=== PATIENT | female | born 1960 | race Caucasian/White ===

== ENCOUNTER 2020-08-29 14:31 | Emergency (ER) | payer BC, MEDICAID, OTHER ==
[~2020-08-29] VITALS: Ht 154.9 cm; Wt 81.6 kg
[~2020-08-29 14:31] MED LIST: ADVIR INH; ALBUPOW26 IN; ALBUPOW26 INH; MONT10TA34 OR
[2020-08-29 15:11] LABS: Urine Bacteria NONE SEEN /hpf (None Seen); Urine Blood Negative /uL (Negative); Urine Specific Gravity 1.018 (1.001-1.035); Urine WBC 2 /hpf (0 - 5)
[2020-08-29 15:51] LABS: Basophils # (auto) 0.1 10 ^3/uL (0-0.2); Basophils % (auto) 0.5 % (0.0-2.0); Eosinophils # (auto) 0.1 10 ^3/uL (0-0.8)
[2020-08-29 15:53] LABS: Eosinophils % (auto) 1.3 % (0.0-7.0); Hematocrit 46.4 % (36.0-46.0); Hemoglobin 15.4 g/dL (12.2-16.2); Lymphocytes # (auto) 2.1 10 ^3/uL (0.4-5.4); Lymphocytes % (auto) 19.2 % (10.0-50.0); Mean Corpuscular Hemoglobin 26.2 pg (28.0-32.0); Mean Corpuscular Hgb Conc. 33.3 g/dL (32.0-36.0); Mean Corpuscular Volume 78.8 fL (80.0-100.0); Monocytes # (auto) 0.6 10 ^3/uL (0-1.3); Monocytes % (auto) 5.2 % (0.0-12.0); Neutrophils % (auto) 73.8 % (37.0-80.0); Nucleated Red Blood Cells % 0.1 %; Platelet Count (auto) 328 10^3/uL (140-450); Red Blood Cells 5.88 10^6/uL (4.0-5.20); Red Cell Distribution Width 15.1 % (11.8-14.3); White Blood Cell 10.8 10^3/uL (4.4-10.8)
[2020-08-29 16:14] LABS: Alanine Aminotransferase 18 U/L (13-56); Anion Gap 7 (5-15); Aspartate Aminotransferase 13 U/L (15-37); BUN/Creatinine Ratio 14.3; Blood Urea Nitrogen 10 mg/dL (7-18); Calcium 8.7 mg/dL (8.5-10.1); Carbon Dioxide 24 mmol/L (21-32); Chloride 109 mmol/L (98-107); GFR African American 109 mL/min; GFR Non-African American 90 mL/min; Glucose 94 mg/dL (74-106); Potassium 3.9 mmol/L (3.5-5.1); Sodium 140 mmol/L (136-145)
[2020-08-29 16:16] LABS: Partial Thromboplastin Time 32.6 sec (23.0-31.2)
[2020-08-29 16:19] LABS: Alkaline Phosphatase 97 U/L (45-117); Total Protein 7.3 g/dL (6.4-8.2)
[2020-08-29 16:51] VITALS: BP 175/88
== END 2020-08-29 16:58 | disposition home or self-care (01) ==
LOC: ER 14:31
DX: K80.80 Other cholelithiasis without obstruction (principal); E86.0 Dehydration; J44.9 Chronic obstructive pulmonary disease, unspecified; Z87.891 Personal history of nicotine dependence; Z79.899 Other long term (current) drug therapy; Z88.5 Allergy status to narcotic agent
CPT/HCPCS: 36415; 71045; 74176; 80053; 81001; 84484; 85025; 85610; 85730; 93005

== ENCOUNTER 2025-04-13 05:03 | Inpatient (IN) | payer OTHER, MEDICAID ==
[2025-04-13] VITALS (13 sets, daily range): BP systolic 125; BP diastolic 74; PULSE 75–112; RESP 18–22; TEMP 98.1; O2SAT 91–98
[~2025-04-13] VITALS: Ht 157.5 cm; Wt 67.8 kg
[~2025-04-13 05:03] MED LIST changes: +MONT-8 OR; -MONT10TA34 OR
--- NOTE | 2025-04-13 05:26 | ED.PDOC ---
HPI Comments 64-year-old female with a history of TBI transferred from [facility] ER for elevated troponins. Patient presented there complaining of shortness of breath, workup showed elevated and increasing serial troponins. The patient denied chest pain at [facility], and continues to be asymptomatic here. No other symptoms. Chief Complaint: elevated troponin Time Seen by MD: 05:11 Primary Care Provider: SINDY Allergies: Coded Allergies: Morphine (Verified Allergy, Unknown, NARCOTICS, 04/13/25) Uncoded Allergies: NARCOTICS (Allergy, Unknown, 06/30/10) Home Meds Reported Medications Montelukast Sodium (MONTELUKAST SODIUM) 10 Mg Tab, 10 MG OR DAILY 09/23/13 [Advir] No Conflict Check, 2 PUFF INH PRN 11/05/11 Albuterol (Albuterol) Pow, 2.5 MG INH BID 11/05/11 Albuterol (Albuterol) Pow, 2.5 MG IN PRN 11/05/11 Past Medical History PAST MEDICAL HISTORY: Anxiety, Asthma, COPD Past Medical History (Other): TBI Surgical History: Tubal Ligation 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 Moist mucous membranes.) Neck: Full Range of Motion, Normal Inspection Respiratory: Lungs Clear, No Accessory Muscle Use, No Respiratory Distress, Normal Breath Sounds Cardiovascular: No Edema, No JVD, Regular Rate/Rhythm Breast Exam: Deferred Gastrointestinal: Non Tender, Soft Genitalia: Deferred Pelvic: Deferred Rectal: Deferred Extremities: Normal inspection, Normal range of motion, Non-tender, No pedal edema Neurologic: Alert (Oriented x4), Normal Affect, Normal Mood, Other (Moves all extremities) Cerebellar Function: NOT DONE Reflexes: NOT DONE Skin: Dry, Normal Color, Warm Lymphatic: NOT DONE EKG EKG : Comments Sinus tach, rate 107, normal intervals, left axis deviation, possible old anteroseptal infarct, nonspecific T change. Was a procedure done? Was a procedure done?: No CP Differential Dx Differential Diagnosis: Angina, [place], Pulmonary Embolus Differential Diagnosis: CHF Differential Diagnosis: Aortic dissection, Esophageal reflux/spasm, Gastritis, Pericarditis, Pneumonia X-Ray, Labs, Meds, VS Vital Signs Date Time Temp Pulse Resp B/P (MAP) Pulse Ox O2 Delivery O2 Flow Rate FiO2 04/13/25 05:17 97.8 106 26 165/90 (115) 97 97.8 04/13/25 05:08 107 X-Ray, Labs, Meds, VS Comment 64-year-old female transferred from [facility] with elevated troponins Vitals remarkable for heart rate 106 Exam unremarkable except for mild initial tachycardia Rhythm strip independently interpreted by me: Sinus tach, rate 107, no ectopy. Plan is to obtain ongoing serial troponins and Cardiology evaluation. Case discussed with KISHA Lima, who was already aware of the patient and will admit her. Time of 1ST Reevaluation: 05:24 Reevaluation 1ST: Unchanged Patient Education/Counseling: Diagnosis, Treatment Family Education/Counseling: No Family Present Departure 1 Departure Time of Disposition: 05:25 Impression: Primary Impression: Shortness of breath Additional Impression: Elevated troponin Disposition: ADMITTED INPATIENT Admit to: Tele Condition: Guarded Critical Care Note Critical Care Time?: No Stability Stability form required: No Heart Score Heart Score: Heart Score Response (Comments) Value History Slightly Suspicious 0 EKG Repolarization Disturb 1 Age >65 2 Risk Factors No known risk factors 0 Troponin >3 x's Normal limit 2 Total 5 MARTIN GUTIERREZ MD April 13, 2025 05:26
[2025-04-13] MEDS ORDERED: MORPHINE SULFATE INJ 2 MG/ml SYRG IV PRN (05:45)
[2025-04-13] MEDS ORDERED: NITROGLYCERIN 0.4 MG SL TAB SL PRN (05:45)
--- NOTE | 2025-04-13 05:50 | DVHHP2 ---
Admitting Diagnosis: elevated troponin levels, COPD exacerbation History of Present Illness HPI Mrs. Amelia Winston is a 64-year-old female with a history of TBI, COPD, Asthma transferred from [facility] ER for elevated Troponin levels. Patient presented there complaining of shortness a breath, workup showed elevated and increasing serial Troponin levels of 0.620, 3.310. Patient labs at [facility] WBC 11.3, H&H 15.3/46.7, Platelets 331, Na 135, K 4.1, BUN 17/0.74. The patient denied chest pain at [facility], patient reports mild midsternal non radiating chest pain 01/04 with shortness of breath. Patient admitted for further evaluation and treatment. Home Meds Reported Medications Montelukast Sodium (MONTELUKAST SODIUM) 10 Mg Tab, 10 MG OR DAILY 09/23/13 [Advir] No Conflict Check, 2 PUFF INH PRN 11/05/11 Albuterol (Albuterol) Pow, 2.5 MG INH BID 11/05/11 Albuterol (Albuterol) Pow, 2.5 MG IN PRN 11/05/11 Past Medical History Cardiac: No pertinent Hx Pulmonary: Asthma, COPD Central Nervous System: No pertinent Hx GI: No pertinent Hx Hemotology/Oncology: No pertinent Hx Hepatobiliary: No pertinent Hx Psychiatric: No pertinent Hx Musculoskeletal: No pertinent Hx Rheumotologic: No pertinent Hx Infectious Disease: No peritnent Hx ENT: No pertinent Hx Renal/: No pertinent Hx Endocrine: No pertinent Hx Dermatology: No pertinent Hx Others TBI, cardiac arrest with intubation Patient Family History: Chronic obstructive lung disease (situation) Family history: Cardiovascular disease Smoker: Quit Alocohol: None Drugs: None Lives with: With family Domestic Violence: Neg Review of Systems Constitutional: No symptom reported Ears, Nose, & Throat: No symptom reported Eyes: No symptom reported Pulmonary/Respiratory: Dyspnea Cardiovascular: Chest Pain Gastrointestinal: No symptom reported Genitourinary: No symptom reported Musculoskeletal: No symptom reported Skin: No symptom reported Psychiatric: No symptom reported Endocrine: No symptom reported Hemotologic/Lymphatic: No symptom reported H&P Exam Vital Signs Vital Signs Date Time Temp Pulse Resp B/P (MAP) Pulse Ox O2 Delivery O2 Flow Rate FiO2 04/13/25 05:17 97.8 106 26 165/90 (115) 97 97.8 General Appeara: Well developed, Well nourished Head Exam: Normal inspection Neck Exam: Normal inspection, Non-tender, Normal alignment Eye Exam: bilateral eye Normal inspection, bilateral eye PERRL, bilateral eye EOMI Ear Exam: bilateral ear Auricle normal Nasal Exam: Normal inspection Mouth: Normal Inspection Pulmonary/Respiratory: Normal inspection, Wheezing, Other (diminished lower bases ) Cardiovascular/Chest: Normal inspection, Regular rate, Tachycardia Peripheral Pulses: 2+ dorsalis pedis (R), 2+ dorsalis pedis (L), 2+ Radial (R), 2+ Radial (L) Abdominal Exam: Normal bowel sounds, Soft Rectal Exam: Deferred Back Exam: Normal inspection [employer]PERATOR Exam: Normal hearing, Normal speech, PERRL Neuro/Mental St: Alert, Oriented Appearance: Appropriate appearance, Appropriate insight Eye contact/ Speech: Cooperative, Good eye contact, Normal speech Thoughts/Psych: Normal thought pattern Skin Exam: Normal inspection, Normal color, Warm/dry Assessment/Plan Problem List: (1) Elevated troponin (2) COPD exacerbation (3) Shortness of breath Plan This is a 64 yo female with known history of COPD , Asthma, TBI who is a transfer from [facility] for elevated serial troponin levels. Patient 1, Elevated troponin 2. COPD exacerbation with hypoxia 3. Asthma 4. history of TBI Plan: Admit SDU Cardiology consultation , 2D echocardiogram, serial troponin levels, Anticoagulation Lovenox SC, statin, ASA, Lipid panel, Pulmonology consultation, ABG, Bronchodilators, supplemental oxygen to keep 02 saturations above 92%, IV steroids Discussed all above with patient who verbalizes agreement and understanding of care plan. All questions were answered. Discussed with supervising MD. Patient's chart is reviewed and discussed with the nurse practitioner. I agree with the nurse practitioner's evaluation, documentation, assessment and care plan as outlined. I will wait for 2D echocardiogram results. Meantime start her on IV diuresis for 24 hours and reassess. Plan discussed with: Patient, Other Code Visit Code Visit Total Time (mins): 45 JACQUELYN CHAMBERS April 13, 2025 05:50 DARWIN HARPER MD April 13, 2025 11:51
[2025-04-13 06:19] LABS: INR 1.01 (0.9-1.15); Prothrombin Time 10.7 sec (9.3-11.8)
[2025-04-13 06:31] LABS: Triglycerides 74 mg/dL (< 150)
[2025-04-13 06:33] LABS: Cholesterol 181 mg/dL (< 200); HDL Cholesterol 56 mg/dL (40-59); LDL Cholesterol 115 mg/dL (< 100)
[2025-04-13] MEDS: ALBUTEROL SULF 2.5 MG/0.5ML(0.5%) NEB SOLN NEB PRN (06:58)
[2025-04-13] MEDS: IPRATROPIUM BROM 0.5 MG/2.5ML INH SOL NEB SCH (06:58)
[2025-04-13] MEDS: HEPARIN SODIUM (PORCINE) 5000 UNITS/ML 1ML VIAL IV ONE ×2 (07:00→09:37)
--- NOTE | 2025-04-13 07:04 | DVH ---
CLINICAL INFORMATION: Shortness of breath. TECHNIQUE: Single AP portable chest radiograph was obtained. COMPARISON: None FINDINGS: Lungs: Hyperaeration of the lungs and flattening of the diaphragm suggesting emphysematous changes. M ild bilateral interstitial opacities, right greater than left, of uncertain chronicity. Cardiac: Heart size is within normal limits. Pulmonary vasculature: Unremarkable. Mediastinum/georgie: Dense atherosclerotic calcification of the aortic arch. Bones: No acute osseous abnormality identified. Other: No other significant findings. IMPRESSION: 1. Bilateral interstitial opacities, right greater than left, of uncertain chronicity. Differential c onsiderations would include atypical infectious process, chronic interstitial lung disease, or inters titial pulmonary edema in the appropriate clinical setting. No dense focal consolidation visualized. 2. Emphysematous changes.
[2025-04-13 07:32] LABS: Basophils # (auto) 0 10 ^3/uL (0-0.2); Basophils % (auto) 0.2 % (0.0-2.0); Eosinophils # (auto) 0 10 ^3/uL (0-0.8); Eosinophils % (auto) 0.1 % (0.0-7.0); Hematocrit 48.9 % (36.0-46.0); Hemoglobin 16.4 g/dL (12.2-16.2); Lymphocytes # (auto) 0.9 10 ^3/uL (0.4-5.4); Lymphocytes % (auto) 10.2 % (10.0-50.0); Mean Corpuscular Hemoglobin 26.5 pg (28.0-32.0); Mean Corpuscular Hgb Conc. 33.6 g/dL (32.0-36.0); Monocytes # (auto) 0.1 10 ^3/uL (0-1.3); Monocytes % (auto) 0.8 % (0.0-12.0); Neutrophils # (auto) 7.5 10 ^3/uL (1.6-8.6); Neutrophils % (auto) 88.7 % (37.0-80.0); Nucleated Red Blood Cells % 0.1 %; Platelet Count (auto) 378 10^3/uL (140-450); Red Blood Cells 6.19 10^6/uL (4.0-5.20); Red Cell Distribution Width 14.7 % (11.8-14.3); White Blood Cell 8.4 10^3/uL (4.4-10.8)
[2025-04-13] MEDS: methylPREDNISolone SOD SUCC 40 MG/ML VL IV SCH (07:39)
[2025-04-13 08:34] LABS: Base Excess 0.6 mmol/L (-2.0-3.0)
[2025-04-13 08:39] LABS: Potassium 4.7 mmol/L (3.5-5.1); Sodium 142 mmol/L (136-145)
[2025-04-13 08:40] LABS: Anion Gap 15 (5-15)
[2025-04-13 08:46] LABS: BUN/Creatinine Ratio 14.3 (10.0-20.0); Blood Urea Nitrogen 12 mg/dL (9-23)
[2025-04-13 08:51] LABS: Calcium 10.5 mg/dL (8.7-10.4); Carbon Dioxide 19 mmol/L (20-31); Chloride 108 mmol/L (98-107); Glucose 165 mg/dL (74-106); Magnesium 2.6 mg/dL (1.6-2.6)
[2025-04-13] MEDS: HEPARIN DRIP/D5W 100UNITS/ML 250 ML IV SCH ×2 (09:40→17:02)
--- NOTE | 2025-04-13 09:54 | ECG ---
[facility] Test Date: 2025-04-13 Test Time: 05:08:14 Pat Name: JESSE RODAS Department: ED Room: 0282T Gender: F Business Insurance Agent: ED : [id number] Requested By: MARTIN MAHAN Order Number: [id number] Reading MD: Andriy Olsen Measurements Intervals [place] Rate: 107 P: 73 WA: 152 QRS: -43 QRSD: 93 T: 76 QT: 352 QTc: 470 Interpretive Statements Sinus tachycardia Left axis deviation Probable anteroseptal infarct, recent Lateral leads are also involved Electronically Signed On 04-19-2025 11:13:20 PDT by Andriy Olsen Please click the below link to view image of tracing.
[2025-04-13 10:16] LABS: Barbiturate Scree,Urine Neg (NEGATIVE); Opiate Scree,Urine Neg (NEGATIVE)
[2025-04-13 10:17] LABS: Amphetamine Screen, Urine Neg (NEGATIVE); Benzodiazephine Screen, Urine Neg (NEGATIVE); Cannabinoid Screen, Urine Neg (NEGATIVE); Cocaine Screen, Urine Neg (NEGATIVE); Phencyclidine Screen, Urine Neg (NEGATIVE)
--- NOTE | 2025-04-13 10:29 | CONS ---
Pharmacy Clinical Information: HEPARIN DRIP PER PROTOCOL SPOKE TO BULB WEEDERASHER MCDANIELS REGARDING STARTING HEPARIN DRIP 04/13/25 AT 0557 aPTT = 37.6 HEPARIN BOLUS 4000 UNITS IVP X1 (CLARIFIED WITH PROVIDER BY ASHER MCDANIELS) INITIAL HEPARIN DRIP RATE AT 900 UNITS/HR NEXT aPTT: 04/13 AT 1530 ASHER MCDANIELS READ BACK: BOLUS 4000 UNITS IVP X1 THEN HEPARIN DRIP AT 900 UNITS/HR MACIE Michael April 13, 2025 10:29
--- NOTE | 2025-04-13 11:23 | DVHINCON2 ---
Date Seen: April 13, 2025 Referring Physician KISHA Lima Reason for Consultation NSTEMI History of Present Illness This is a 64-year-old female patient who presents to the emergency room with chief complaint of shortness of breath for one day. The patient was initially seen at [facility] and then transferred to this facility. The patient reports onset of symptoms one day prior to emergency room arrival. The patient also mentions chest pain. She states that the chest pain began after the shortness of breath. She describes it as provoked by her shortness of breath, intermittent, pressure-like in nature, substernal and nonradiating. Initial twelve lead electrocardiogram reveals sinus tachycardia with Q waves seen in anteroseptal leads. Initial troponin level of 4505ng/L with downtrend thereafter. Significant past medical history includes COPD, asthma, and history of tobacco use. The patient had a coronary angiogram with left heart catheterization in 2009 which revealed normal coronaries at that time. The patient states that she has not had any cardiac workup since then. Past Medical History Past medical history reviewed. No other significant than mentioned above. Past Surgical History Tubal ligation Family History: Chronic obstructive lung disease (situation) Family history: Cardiovascular disease Family History Family history reviewed. Social History Patient has a 45 pack-year history, quit smoking approximately five years ago Denies any illicit drug use Denies any alcohol use Allergies: Coded Allergies: Morphine (Verified Allergy, Unknown, NARCOTICS, 04/13/25) Uncoded Allergies: NARCOTICS (Allergy, Unknown, 06/30/10) Home Meds Reported Medications Montelukast Sodium (MONTELUKAST SODIUM) 10 Mg Tab, 10 MG OR DAILY 09/23/13 [Advir] No Conflict Check, 2 PUFF INH PRN 11/05/11 Albuterol (Albuterol) Pow, 2.5 MG INH BID 11/05/11 Albuterol (Albuterol) Pow, 2.5 MG IN PRN 11/05/11 Home Meds Home medications reviewed. Current Medications Current Medications Medications (Trade) Dose Ordered Sig/Liam Route PRN Reason Start Time Stop Time Status Last Admin Nitroglycerin (Ntrostat Sublingual) 0.4 mg Q5MINP PRN SL FOR CHEST PAIN 04/13/25 05:45 Morphine Sulfate 2 mg Q30M PRN IV FOR CHEST PAIN 04/13/25 05:45 Hold Enoxaparin Sodium (Lovenox) 70 mg Q12HR SC 04/13/25 12:00 04/13/25 06:53 DC Aspirin 81 mg DAILY PO 04/14/25 10:00 Methylprednisolone Sodium Succinate (Solu Medrol) 40 mg BID IV 04/13/25 06:30 04/13/25 11:05 Ipratropium [place] (Atrovent Medneb) 0.5 mg Q4HR NEB 04/13/25 06:30 04/13/25 10:53 Albuterol (Ventolin Medneb) 2.5 mg Q6HPRN PRN NEB SHORTNESS OF BREATH 04/13/25 06:30 04/13/25 10:53 Heparin Sodium/ Dextrose 250 ml @ 9 mls/hr Q24H IV 04/13/25 07:00 04/13/25 09:40 Furosemide (Lasix Injection) 40 mg BIDD IV 04/13/25 18:00 UNV Potassium Chloride (Klor-Con Tablet) 10 meq BID PO 04/13/25 22:00 UNV Review of Systems Constitutional: No symptom reported Ears, Nose, & Throat: No symptom reported Eyes: No symptom reported Neurological: No symptoms reported Pulmonary/Respiratory: Shortness of breath Cardiovascular: Chest pain Gastrointestinal: No symptom reported Genitourinary: No symptom reported Musculoskeletal: No symptom reported Skin: No symptom reported Psychiatric: No symptom reported Endocrine: No symptom reported Hematologic/Lymphatic: No symptom reported Vital Signs Vital Signs Date Time Temp Pulse Resp B/P (MAP) Pulse Ox O2 Delivery O2 Flow Rate FiO2 04/13/25 11:14 98.1 104 18 125/74 95 4.0 36 98.1 04/13/25 11:13 Nasal Cannula* Physical Exam General Appearance: Cooperative. Well-developed. Well-nourished. No acute distress. Pulmonary/Respiratory: Diminished bilateral lower lobes Cardiovascular/Chest: Regular rate and rhythm. Peripheral Pulses: 2+ Radial (R). 2+ Radial (L). 2+ Pedal (R). 2+ Pedal (L) Abdominal Exam: Normal bowel sounds. Ankle Exam: Negative ankle edema Lower extremities: Negative lower extremity edema Neuro/Mental Status: A/OX4, coherent. Thoughts/Psych: Normal thought pattern. Appropriate mood and affect. Good judgment and insight. Appearance: No acute distress. Skin Exam: Normal inspection. Normal color. Warm and dry. Labs/Diagnostic Data Labs Test 04/13/25 09:20 04/13/25 08:16 04/13/25 07:00 04/13/25 06:58 Range/Units Troponin I High Sensitivity 4363 *H </=34 ng/L Urine Opiates Screen Neg NEGATIVE Urine Fentanyl Screen Neg NEGATIVE Urine Barbiturates Screen Neg NEGATIVE Urine Phencyclidine Screen Neg NEGATIVE Urine Amphetamines Screen Neg NEGATIVE Urine Benzodiazepines Screen Neg NEGATIVE Urine Cocaine Screen Neg NEGATIVE Urine Cannabinoids Screen Neg NEGATIVE Blood Gas Specimen Type Arterial Blood Gas Sample Site Right radial Blood Gas Patient Temperature 37.0 Arterial Blood Date Drawn [id number] Arterial Blood pH 7.406 7.350-7.450 Arterial Blood Partial Pressure CO2 41.3 32.0-45.0 mmHg Arterial Blood Partial Pressure O2 76.8 L 83.0-108.0 mmHg Arterial Blood HCO3 25.4 21.0-28.0 mmol/L Arterial Blood Oxygen Saturation 95.3 94.0-98.0 % Arterial Blood Base Excess 0.6 -2.0-3.0 mmol/L Arterial Blood Oxyhemoglobin 93.8 L 94.0-98.0 % Arterial Blood Carboxyhemoglobin 1.0 0.5-1.5 % Arterial Blood Methemoglobin 0.6 0.0-1.5 % Christian Test Yes Blood Gas Total Hemoglobin 16.30 H 12.0-16.0 g/dL Blood Gas Liter Flow 6.00 Blood Gas Modality Mask - simple FiO2 % 40.0 Thyroid Stimulating Hormone (TSH) 0.34 L 0.55-4.78 uIU/mL Test 04/13/25 05:57 Range/Units White Blood Count 8.4 4.4-10.8 10^3/uL Red Blood Count 6.19 H 4.0-5.20 10^6/uL Hemoglobin 16.4 H 12.2-16.2 g/dL Hematocrit 48.9 H 36.0-46.0 % Mean Corpuscular Volume 79.0 L 80.0-100.0 fL Mean Corpuscular Hemoglobin 26.5 L 28.0-32.0 pg Mean Corpuscular Hemoglobin Concent 33.6 32.0-36.0 g/dL Red Cell Distribution Width 14.7 H 11.8-14.3 % Platelet Count 378 140-450 10^3/uL Mean Platelet Volume 9.1 6.9-10.8 fL Neutrophils (%) (Auto) 88.7 H 37.0-80.0 % Lymphocytes (%) (Auto) 10.2 10.0-50.0 % Monocytes (%) (Auto) 0.8 0.0-12.0 % Eosinophils (%) (Auto) 0.1 0.0-7.0 % Basophils (%) (Auto) 0.2 0.0-2.0 % Neutrophils # (Auto) 7.5 1.6-8.6 10 ^3/uL Lymphocytes # (Auto) 0.9 0.4-5.4 10 ^3/uL Monocytes # (Auto) 0.1 0-1.3 10 ^3/uL Eosinophils # (Auto) 0 0-0.8 10 ^3/uL Basophils # (Auto) 0 0-0.2 10 ^3/uL Nucleated Red Blood Cells 0.1 % Prothrombin Time 10.7 9.3-11.8 sec Prothrombin Time INR 1.01 0.9-1.15 Activated Partial Thromboplast Time 37.6 H 24.5-34.5 SEC Sodium Level 142 136-145 mmol/L Potassium Level 4.7 3.5-5.1 mmol/L Chloride Level 108 H 98-107 mmol/L Carbon Dioxide Level 19 L 20-31 mmol/L Anion Gap 15 5-15 Blood Urea Nitrogen 12 9-23 mg/dL Creatinine 0.84 0.550-1.02 mg/dL Glomerular Filtration Rate Calc 77 >90 mL/min BUN/Creatinine Ratio 14.3 10.0-20.0 Serum Glucose 165 H 74-106 mg/dL Hemoglobin A1c 5.5 <5.7 % A1C Calcium Level 10.5 H 8.7-10.4 mg/dL Magnesium Level 2.6 1.6-2.6 mg/dL Triglycerides Level 74 < 150 mg/dL Cholesterol Level 181 < 200 mg/dL LDL Cholesterol 115 H < 100 mg/dL HDL Cholesterol 56 40-59 mg/dL Assessment NSTEMI rule out coronary artery disease Rule out structural heart disease Hyperlipidemia, newly diagnosed COPD Asthma History of tobacco use Plan/Recommendation We will continue with the following plan/recommendations (Dr. Olsen): * Transthoracic echocardiogram to evaluate cardiac function * Chest pain protocol * HEART score: 4 points (moderate score) * ANY score: 2 points * Single antiplatelet therapy and lipid-lowering agent * Coronary angiogram * Close Cardiac surveillance Case discussed with . Given the patient's clinical presentation, elevated troponin level, and twelve lead electrocardiogram, the patient may benefit from a coronary angiogram with left heart catheterization. The procedure was discussed with the patient in full detail including risks and benefits. Risks include but are not limited to bleeding, contrast-induced nephropathy, stroke, and even . The patient understands and is agreeable to undergo the procedure. We will schedule the patient at soonest availability on 04/14/2025. Thank you for allowing us to care for this patient. Please call with any questions or concerns. Critical care time spent: 43 minutes This medical document was created using an electronic medical record system with voice recognition software and computerized dictation system. Although this document has been carefully reviewed, there might still be some phonetic and typographical errors. Occasional wrong-word or ``sound-alike substitutions may have occurred due to the inherent limitations of voice recognition software. These areas are purely typographical due to imperfections of the software programs and do not reflect any compromise in the patient's medical care. Please read the chart carefully and recognize, using context, where these substitutions have occurred. Plan discussed with: Patient NYHA Physical activity limitations: NA Date of Service: April 13, 2025 Billing Provider: PACHECO BAER Cardiology Common Codes: 81940-[id number] INP/OBS CARE (High) Cardiology Consultation Codes: 56158-[id number] CONSULT <45MIN PACHECO BAER April 13, 2025 11:23
[2025-04-13] MEDS ORDERED: ENOXAPARIN SOD 100 MG/1 ML SYRINGE SC SCH (12:00)
[2025-04-13 15:52] LABS: INR 1.04 (0.9-1.15)
[2025-04-13 15:55] LABS: Partial Thromboplastin Time 82.8 SEC (24.5-34.5)
--- NOTE | 2025-04-13 18:19 | CONS ---
Pharmacy Clinical Information: HEPARIN PER PHARMACY SPOKE TO ASHER Edouard REGARDING heparin dose change Current dose: 900 units/hr CURRENT aPTT: 82.8 on 04/13/25 at 14:48 BOLUS: no Decrease (new dose): 700 units/hr Date and time new dose started: 17:02 ON 04/13/2025 Next aPTT: 04/13/2025 AT 23:00 ASHER Edouard READ BACK NEW DOSE: 700 UNITS/HR MACIE Michael April 13, 2025 18:19
[2025-04-13] MEDS: FUROSEMIDE 40 MG/4 ML VIAL IV SCH (18:59)
--- NOTE | 2025-04-13 18:59 | DVHINCON2 ---
Date of service: April 13, 2025 Referring Physician Laverne Lima NP Reason for Consultation Shortness of breath History of Present Illness History Source: Patient Exam Limitations: No limitations HPI Patient is a 64-year old lady with a history of COPD/asthma on oxygen at home who presented with shortness of breath. Was seen in the emergency room where she was found to have an elevated troponin consistent with NSTEMI and the patient was admitted for further cardiac workup. ABG was obtain on 6 liters via facemask, pH 7.40, pCO2 41, pO2 76 and chest x-ray demonstrated reticular opacities. Pulmonology was consulted to assist in management. Home Meds Reported Medications Montelukast Sodium (MONTELUKAST SODIUM) 10 Mg Tab, 10 MG OR DAILY 09/23/13 [Advir] No Conflict Check, 2 PUFF INH PRN 11/05/11 Albuterol (Albuterol) Pow, 2.5 MG INH BID 11/05/11 Albuterol (Albuterol) Pow, 2.5 MG IN PRN 11/05/11 Past Medical History Cardiac: No pertinent Hx Pulmonary: Asthma, COPD Central Nervous System: No pertinent Hx GI: No pertinent Hx Hemotology/Oncology: No pertinent Hx Hepatobiliary: No pertinent Hx Psychiatric: No pertinent Hx Musculoskeletal: No pertinent Hx Rheumotologic: No pertinent Hx Infectious Disease: No peritnent Hx ENT: No pertinent Hx Renal/: No pertinent Hx Endocrine: No pertinent Hx Dermatology: No pertinent Hx Others TBI, cardiac arrest with intubation Past Surgical History: No pertinent Hx Family History: No pertinent Hx Patient Family History: Chronic obstructive lung disease (situation) Family history: Cardiovascular disease Smoker: No Hx (Negative) Alocohol: None Drugs: None Lives with: With family Domestic Violence: Neg Review of Systems Constitutional: No symptom reported Ears, Nose, & Throat: No symptom reported Eyes: No symptom reported Pulmonary/Respiratory: Dyspnea Cardiovascular: No symptom reported Gastrointestinal: No symptom reported Genitourinary: No symptom reported Musculoskeletal: No symptom reported Skin: No symptom reported Psychiatric: No symptom reported Endocrine: No symptom reported Hemotologic/Lymphatic: No symptom reported H&P Exam Vital Signs Vital Signs Date Time Temp Pulse Resp B/P (MAP) Pulse Ox O2 Delivery O2 Flow Rate FiO2 04/13/25 17:00 104 22 136/78 (97) 90 04/13/25 15:00 97.9 97.9 04/13/25 14:45 Nasal Cannula* 4 36 General Appeara: Well developed, Well nourished, Normal Appearance Head Exam: Normal inspection Neck Exam: Normal inspection, Non-tender, Normal alignment Eye Exam: bilateral eye Normal inspection, bilateral eye PERRL, bilateral eye EOMI Ear Exam: bilateral ear Auricle normal, bilateral ear Canal normal, bilateral ear TM normal Nasal Exam: Normal inspection Mouth: Normal Inspection Pulmonary/Respiratory: Normal inspection, Normal breath sounds, Chest non- tender, Lungs clear Cardiovascular/Chest: Normal inspection, Regular rate, Normal Rhythm Peripheral Pulses: 4+ Radial (R), 4+ Radial (L), 4+ Brachial (R), 4+ Brachial (L) Abdominal Exam: Normal bowel sounds Labs/Xrays Labs Test 04/13/25 14:48 04/13/25 08:16 04/13/25 07:00 04/13/25 06:58 Range/Units Prothrombin Time 11.0 9.3-11.8 sec Prothrombin Time INR 1.04 0.9-1.15 Activated Partial Thromboplast Time 82.8 *H 24.5-34.5 SEC Troponin I High Sensitivity 3375 *H </=34 ng/L Urine Opiates Screen Neg NEGATIVE Urine Fentanyl Screen Neg NEGATIVE Urine Barbiturates Screen Neg NEGATIVE Urine Phencyclidine Screen Neg NEGATIVE Urine Amphetamines Screen Neg NEGATIVE Urine Benzodiazepines Screen Neg NEGATIVE Urine Cocaine Screen Neg NEGATIVE Urine Cannabinoids Screen Neg NEGATIVE Blood Gas Specimen Type Arterial Blood Gas Sample Site Right radial Blood Gas Patient Temperature 37.0 Arterial Blood Date Drawn [id number] Arterial Blood pH 7.406 7.350-7.450 Arterial Blood Partial Pressure CO2 41.3 32.0-45.0 mmHg Arterial Blood Partial Pressure O2 76.8 L 83.0-108.0 mmHg Arterial Blood HCO3 25.4 21.0-28.0 mmol/L Arterial Blood Oxygen Saturation 95.3 94.0-98.0 % Arterial Blood Base Excess 0.6 -2.0-3.0 mmol/L Arterial Blood Oxyhemoglobin 93.8 L 94.0-98.0 % Arterial Blood Carboxyhemoglobin 1.0 0.5-1.5 % Arterial Blood Methemoglobin 0.6 0.0-1.5 % Christian Test Yes Blood Gas Total Hemoglobin 16.30 H 12.0-16.0 g/dL Blood Gas Liter Flow 6.00 Blood Gas Modality Mask - simple FiO2 % 40.0 Thyroid Stimulating Hormone (TSH) 0.34 L 0.55-4.78 uIU/mL Test 04/13/25 05:57 Range/Units White Blood Count 8.4 4.4-10.8 10^3/uL Red Blood Count 6.19 H 4.0-5.20 10^6/uL Hemoglobin 16.4 H 12.2-16.2 g/dL Hematocrit 48.9 H 36.0-46.0 % Mean Corpuscular Volume 79.0 L 80.0-100.0 fL Mean Corpuscular Hemoglobin 26.5 L 28.0-32.0 pg Mean Corpuscular Hemoglobin Concent 33.6 32.0-36.0 g/dL Red Cell Distribution Width 14.7 H 11.8-14.3 % Platelet Count 378 140-450 10^3/uL Mean Platelet Volume 9.1 6.9-10.8 fL Neutrophils (%) (Auto) 88.7 H 37.0-80.0 % Lymphocytes (%) (Auto) 10.2 10.0-50.0 % Monocytes (%) (Auto) 0.8 0.0-12.0 % Eosinophils (%) (Auto) 0.1 0.0-7.0 % Basophils (%) (Auto) 0.2 0.0-2.0 % Neutrophils # (Auto) 7.5 1.6-8.6 10 ^3/uL Lymphocytes # (Auto) 0.9 0.4-5.4 10 ^3/uL Monocytes # (Auto) 0.1 0-1.3 10 ^3/uL Eosinophils # (Auto) 0 0-0.8 10 ^3/uL Basophils # (Auto) 0 0-0.2 10 ^3/uL Nucleated Red Blood Cells 0.1 % Sodium Level 142 136-145 mmol/L Potassium Level 4.7 3.5-5.1 mmol/L Chloride Level 108 H 98-107 mmol/L Carbon Dioxide Level 19 L 20-31 mmol/L Anion Gap 15 5-15 Blood Urea Nitrogen 12 9-23 mg/dL Creatinine 0.84 0.550-1.02 mg/dL Glomerular Filtration Rate Calc 77 >90 mL/min BUN/Creatinine Ratio 14.3 10.0-20.0 Serum Glucose 165 H 74-106 mg/dL Hemoglobin A1c 5.5 <5.7 % A1C Calcium Level 10.5 H 8.7-10.4 mg/dL Magnesium Level 2.6 1.6-2.6 mg/dL Triglycerides Level 74 < 150 mg/dL Cholesterol Level 181 < 200 mg/dL LDL Cholesterol 115 H < 100 mg/dL HDL Cholesterol 56 40-59 mg/dL Assessment/Plan Plan Impression Acute on chronic respiratory failure Acute COPD exacerbation Elevated troponin NSTEMI Patient seen and examined in the ER Events Increasing oxygen requirements On 6 liters facemask Started on Heparin drip for NSTEMI Labs and imaging reviewed Chest x-ray shows reticular opacities, primarily in the right lung Management Supplemental oxygen Titrate to maintain sats 90% or above Incentive spirometry Antibiotics Start Levaquin 500mg IV daily Bronchodilators Steroids for COPD management Monitor renal function Monitor electrolytes Supplement as needed F/u cardiology Obtain CTA of the chest to rule out pulmonary embolism Obtain ultrasound of the lower extremities to DVT prophylaxis Critical care time 35 minutes Plan discussed with: Patient CHARBEL SULLIVAN MD April 13, 2025 18:59
--- NOTE | 2025-04-13 19:35 | DVH ---
Bilateral lower extremity venous duplex Clinical History: SWELLING Comparison: None Findings: Duplex Doppler evaluation of the deep venous systems of both lower extremities from the common femora l veins to the popliteal veins including color Doppler and spectral/pulsed waveform analysis was perf ormed. RIGHT SIDE: The common femoral vein demonstrates appropriate compressibility and waveform variability. There is compressibility/patency of the great saphenous vein at the proximal thigh. The femoral vein demonstrates appropriate compressibility and waveform variability. The deep femoral vein demonstrates appropriate compressibility and waveform variability. The popliteal vein demonstrates appropriate compressibility and waveform variability. There is normal compressibility at the tibioperoneal trunk. LEFT SIDE: The common femoral vein demonstrates appropriate compressibility and waveform variability. There is compressibility/patency of the great saphenous vein at the proximal thigh. The femoral vein demonstrates appropriate compressibility and waveform variability. The deep femoral vein demonstrates appropriate compressibility and waveform variability. The popliteal vein demonstrates appropriate compressibility and waveform variability. There is normal compressibility at the tibioperoneal trunk. IMPRESSION: 1. No right or left femoropopliteal venous thrombosis. 2. If clinical concern/symptoms persist or worsen, short-interval follow-up study is suggested. 3. END IMPRESSION:
[2025-04-13] MEDS: IOHEXOL 350 MG/ML 100ML IJ ONE (19:57)
[2025-04-13] MEDS: ATORVASTATIN 20 MG TAB PO SCH (21:24)
[2025-04-13] MEDS: levoFLOXacin 500MG 100 ML IV SCH (21:24)
[2025-04-13] MEDS: POTASSIUM CHL 10 Meq TABLET PO SCH (21:25)
[2025-04-13 23:26] LABS: INR 1.03 (0.9-1.15); Partial Thromboplastin Time 41.6 SEC (24.5-34.5); Prothrombin Time 10.9 sec (9.3-11.8)
[2025-04-14] VITALS (17 sets, daily range): BP systolic 117–146; BP diastolic 69–81; PULSE 95–114; RESP 18–23; TEMP 97.5–98.5; O2SAT 90–99
--- NOTE | 2025-04-14 00:51 | DVH ---
CTA Chest with intravenous contrast INDICATION: RULE OUT PE COMPARISON: None TECHNIQUE: Multidetector spiral CTA of the chest was performed of the chest with intravenous contrast . PULMONARY ANGIOGRAPHY PROTOCOL was utilized using a bolus-tracking technique centered on the main p ulmonary artery. Axial, coronal and sagittal multiplanar and MIP reformats were performed. Radiation Dose : 1. Chest: CTDI volume is 5.92 mGy. Dose-length product is 735.0 mGy*cm The dose indicators for CT are the volume Computed Tomography (CT) Dose Index (CTDIvol) and the Dose Length Product (DLP), and are measured in units of mGy and mGy-cm, respectively. These indicators are not patient dose, but values generated from the CT scanner acquisition factors. The report includes radiation exposure data for exposures received during this examination. Findings: Pulmonary artery: No evidence of pulmonary embolism. Lower neck: Unremarkable. Lungs: Extensive emphysematous changes noted throughout both lungs. No focal consolidation. Pleura: No pleural effusion or pneumothorax. Heart/Vascular Structures: Normal heart size. No pericardial effusion. Atherosclerotic changes in aor tic arch, descending thoracic aorta and upper abdominal aorta without evidence of dissection or aneur ysm. Mediastinum / Lymph Nodes: No abnormality demonstrated. No evidence of lymphadenopathy. Musculoskeletal: No acute osseous abnormality. Soft tissues: Unremarkable. IMPRESSION: No evidence of pulmonary embolism. Extensive emphysematous changes throughout both lungs. No acute thoracic abnormality noted.
[2025-04-14 04:59] LABS: Anion Gap 9 (5-15); Carbon Dioxide 29 mmol/L (20-31); Chloride 101 mmol/L (98-107); Potassium 4.2 mmol/L (3.5-5.1); Sodium 139 mmol/L (136-145)
[2025-04-14 05:01] LABS: Calcium 9.3 mg/dL (8.7-10.4)
[2025-04-14 05:05] LABS: Blood Urea Nitrogen 20 mg/dL (9-23)
[2025-04-14 05:06] LABS: INR 1.03 (0.9-1.15); Partial Thromboplastin Time 64.3 SEC (24.5-34.5); Prothrombin Time 10.9 sec (9.3-11.8)
[2025-04-14 05:08] LABS: Basophils # (auto) 0 10 ^3/uL (0-0.2); Basophils % (auto) 0.1 % (0.0-2.0); Eosinophils # (auto) 0 10 ^3/uL (0-0.8); Mean Corpuscular Hgb Conc. 33.3 g/dL (32.0-36.0); White Blood Cell 17.1 10^3/uL (4.4-10.8)
[2025-04-14 05:11] LABS: Hematocrit 44.5 % (36.0-46.0); Hemoglobin 14.8 g/dL (12.2-16.2); Lymphocytes # (auto) 1.2 10 ^3/uL (0.4-5.4); Lymphocytes % (auto) 7.1 % (10.0-50.0); Mean Corpuscular Volume 78.2 fL (80.0-100.0); Monocytes # (auto) 0.4 10 ^3/uL (0-1.3); Monocytes % (auto) 2.6 % (0.0-12.0); Neutrophils # (auto) 15.5 10 ^3/uL (1.6-8.6); Neutrophils % (auto) 90.2 % (37.0-80.0); Platelet Count (auto) 339 10^3/uL (140-450); Red Blood Cells 5.69 10^6/uL (4.0-5.20); Red Cell Distribution Width 14.8 % (11.8-14.3)
[2025-04-14 05:50] LABS: Glucose 157 mg/dL (74-106)
--- NOTE | 2025-04-14 10:42 | DVHPN2 ---
Progress Note - Dictate Date Seen: April 14, 2025 Has the PT tested + for MRSA If YES, has PT been informed?: No Medical Necessity Reason Pt with a Central, PICC or Fol: No vital signs Vital Sign Date Time Temp Pulse Resp B/P (MAP) Pulse Ox O2 Delivery O2 Flow Rate FiO2 04/14/25 08:00 98.4 96 20 120/63 (82) 97 98.4 04/14/25 05:14 Nasal Cannula 3.0 04/14/25 05:14 32 Total Intake and Output 04/13/25 04/13/25 04/14/25 15:00 23:00 07:00 Intake Total 45 ml 32 ml Balance 45 ml 32 ml medications Current Medications Medications Dose Ordered Sig/Liam Route Start Time Stop Time Status Last Admin Dose Admin Nitroglycerin 0.4 mg Q5MINP PRN SL 04/13/25 05:45 Morphine Sulfate 2 mg Q30M PRN IV 04/13/25 05:45 Hold Aspirin 81 mg DAILY PO 04/14/25 10:00 Methylprednisolone Sodium Succinate 40 mg BID IV 04/13/25 06:30 04/13/25 21:24 40 MG Ipratropium [place] 0.5 mg Q4HR NEB 04/13/25 06:30 04/14/25 05:14 0.5 MG Albuterol 2.5 mg Q6HPRN PRN NEB 04/13/25 06:30 04/14/25 05:15 2.5 MG Furosemide 40 mg BIDD IV 04/13/25 18:00 04/14/25 06:29 40 MG Potassium Chloride 10 meq BID PO 04/13/25 22:00 04/13/25 21:25 10 MEQ Heparin Sodium/ Dextrose 250 ml @ 9 mls/hr Q24H IV 04/13/25 17:00 04/14/25 00:19 9 MLS/HR Atorvastatin Calcium 20 mg HS PO 04/13/25 22:00 04/13/25 21:24 20 MG Levofloxacin/ Dextrose 100 ml @ 100 mls/hr DAILY@2000 IV 04/13/25 20:03 04/13/25 21:24 100 MLS/HR laboratory and microbiology Laboratory Tests 04/14/25 04:07 Test 04/14/25 04:07 Range/Units Serum Glucose 157 H 74-106 mg/dL Assessment/Plan Acute hypoxemic respiratory failure Acute exacerbation of COPD Severe smoking-related emphysema Elevated troponin and non ST-elevation [place] History of traumatic brain injury Patient seen and examined in the emergency room Remains on oxygen Vital signs stable Management Plan Continue steroids/bronchodilators Antibiotics for COPD Supportive care oxygen Incentive spirometry GI and DVT prophylaxis Otherwise management per primary team and Cardiology Plan discussed with: Patient CHARBEL SULLIVAN MD April 14, 2025 10:42
[2025-04-14] MEDS: ASPirin 81 mg TAB PO SCH (10:48)
[2025-04-14 12:17] LABS: INR 1.03 (0.9-1.15); Prothrombin Time 10.9 sec (9.3-11.8)
[2025-04-14 12:27] LABS: Partial Thromboplastin Time 78.2 SEC (24.5-34.5)
--- NOTE | 2025-04-14 13:38 | DVHSR ---
APPROVED REPORT EXAM: Two-dimensional and M-mode echocardiogram with Doppler and color Doppler. Blood Pressure: 165/90 mmHg INDICATION Elevated trops RISK FACTORS Height: 62, Weight: 170 DIMENSIONS LVDd (3.8-5.7cm)LA (2D) (1.9-4.0cm)Aortic Root3.2 (2.0-3.7cm) LVDs (2.5-4.0cm)LA (MM) (1.9-4.0cm)Aortic Cusp Exc1.3 (1.5-2.0cm) EF (%) 51.0 (55-70%)Rt. Atrium3.3 (1.9-4.0cm)Asc. Aorta cm Mitral Valve MitralMitral Stenosis E wave1.27m/sMV Mean GR.mmHg A wavem/sMV Peak GR.34mmHg E/A ratio0.02D MVAcm2 Aortic Valve Aortic ValveAortic Stenosis V10.91m/Tim Mean GR.4mmHg V21.27m/Tim Peak GR.6mmHg LVOT Diameter2.0 (1.8-2.4cm)Doppler AVA2.25cm2 Tricuspid Valve TR Velocity2.97m/s [id number] Other Information Technically limited study due to body habitus. Conclusion Study. Difficult acoustic windows. Chamber dimensions are not clearly measured. There appears to b e left ventricular enlargement. Aortic root enlargement. The aortic valve appears to be structurally normal from the limited views obtained. The mitral is st ructurally normal. Mild mitral annular calcification. Left ventricular systolic performance is diminished. There is mid anterior and anteroapical akinesis . Overall estimated ejection fraction is approximately 40%. There is mild tricuspid regurgitation. RVSP at 38 mmHg. No pericardial effusion masses or vegetations discernible.
--- NOTE | 2025-04-14 13:50 | DVHPN2 ---
Reviewed: Care Plan, H&P, Labs, Medications Changes from previous H/P or p: No Changes General: Per HPI Objective Vitals Vital Signs Date Time Temp Pulse Resp B/P (MAP) Pulse Ox O2 Delivery O2 Flow Rate FiO2 04/14/25 11:00 98.0 101 20 105/57 (73) 94 98.0 04/14/25 05:14 Nasal Cannula 3.0 04/14/25 05:14 32 Intake/Output Intake and Output 04/14/25 07:00 Intake Total 77 ml Balance 77 ml Intake IV Total 77 ml General Appearance: Alert, Oriented X3, Cooperative Cardiovascular: Regular rate, Normal S1, Normal S2 Medications Current Medications Medications Dose Ordered Sig/Liam Route Start Time Stop Time Status Last Admin Dose Admin Nitroglycerin 0.4 mg Q5MINP PRN SL 04/13/25 05:45 Morphine Sulfate 2 mg Q30M PRN IV 04/13/25 05:45 Hold Aspirin 81 mg DAILY PO 04/14/25 10:00 04/14/25 10:48 81 MG Methylprednisolone Sodium Succinate 40 mg BID IV 04/13/25 06:30 04/14/25 10:48 40 MG Ipratropium [place] 0.5 mg Q4HR NEB 04/13/25 06:30 04/14/25 10:53 0.5 MG Albuterol 2.5 mg Q6HPRN PRN NEB 04/13/25 06:30 04/14/25 10:53 2.5 MG Furosemide 40 mg BIDD IV 04/13/25 18:00 04/14/25 06:29 40 MG Potassium Chloride 10 meq BID PO 04/13/25 22:00 04/14/25 10:48 10 MEQ Heparin Sodium/ Dextrose 250 ml @ 9 mls/hr Q24H IV 04/13/25 17:00 04/14/25 13:05 7 MLS/HR Atorvastatin Calcium 20 mg HS PO 04/13/25 22:00 04/13/25 21:24 20 MG Levofloxacin/ Dextrose 100 ml @ 100 mls/hr DAILY@2000 IV 04/13/25 20:03 04/13/25 21:24 100 MLS/HR Laboratory Results Laboratory Tests 04/14/25 04:07 Chemistry Test 04/14/25 04:07 Calcium Level 9.3 mg/dL (8.7-10.4) Coagulation Test 04/13/25 14:48 04/13/25 23:02 04/14/25 04:07 04/14/25 11:37 Prothrombin Time 11.0 sec (9.3-11.8) 10.9 sec (9.3-11.8) 10.9 sec (9.3-11.8) 10.9 sec (9.3-11.8) Prothrombin Time INR 1.04 (0.9-1.15) 1.03 (0.9-1.15) 1.03 (0.9-1.15) 1.03 (0.9-1.15) Activated Partial Thromboplast Time 82.8 SEC (24.5-34.5) *H 41.6 SEC (24.5-34.5) H 64.3 SEC (24.5-34.5) H 78.2 SEC (24.5-34.5) *H Labs and/or images reviewed: Labs reviewed by me, Image(s) reviewed by me Assessment/Plan Assessment/Plan Mrs. Amelia Winston is a 64-year-old female with a history of TBI, COPD, Asthma transferred from [facility] ER for elevated Troponin levels. Patient presented there complaining of shortness a breath, workup showed elevated and increasing serial Troponin levels of 0.620, 3.310. [place] [facility] [place] 11.3, H&H 15.3/46.7, Platelets 331, Na 135, K 4.1, BUN 17/0.74. The patient denied chest pain at [facility], patient reports mild midsternal non radiating chest pain 2/10 with shortness of breath. Patient admitted for further evaluation and treatment. This is a 64 yo female with known history of COPD , Asthma, TBI who is [place] [facility] [place] trop[place] levels. #Elevated troponin #COPD exacerbation with hypoxia #acute hypoxic resp failure #Asthma #history of TBI continue with current care supplemental O2 as appropriate Plan discussed with: Patient Date of Service: April 14, 2025 Billing Provider: JENNIFER BERG DO Common Visit Codes: [id number] INP/OBS CARE(HIGH) JENNIFER BERG DO April 14, 2025 13:50
--- NOTE | 2025-04-14 15:14 | CONS ---
Pharmacy Clinical Information: HEPARIN DRIP PROTOCOL 04/14/25 at 1137 aPPT = 78.2 HEPARIN DRIP RATE decreased TO 700 UNITS/HR FROM 900 UNITS/HR AT 1230 by ASHER Araujo NEXT aPTT at 1830 04/14/2025 MACIE Michael April 14, 2025 15:14
[2025-04-14] MEDS: IODIXANOL 320MG/ML 100ML BTL IV ONE (15:31)
[2025-04-14] MEDS: fentaNYL CITRATE 100 MCG/2 ML VL ONE (17:09)
[2025-04-14] MEDS: ANGIOMAX 250 MG VIAL IV ONE (17:09)
[2025-04-14] MEDS: SODIUM CHL 0.9% 50 ML ONE (17:10)
[2025-04-14] MEDS: HEPARIN SODIUM (PORCINE) 5000 UNITS/ML 1ML VIAL ONE (17:10)
[2025-04-14] MEDS: MIDAZOLAM HCL 2MG/2ML 2ml VIAL (1mg/ml) ONE (17:10)
[2025-04-14] MEDS: VERAPAMIL 2.5MG/ML INJ 2ML VIAL IV ONE (17:10)
[2025-04-14] MEDS: LIDOCAINE 2%HCL (LOCAL ANESTH.) INJ 20ML MDV ONE (17:10)
--- NOTE | 2025-04-14 18:26 | DVHOP2 ---
Operative Report - 2 Report Details Date: 04/14/25 Preop Diagnosis: Coronary artery disease. Acute coronary syndrome. Postop Diagnosis: Takotsubo syndrome. Surgeon: Santo Olsen MD Anesthesiologist: Conscious sedation Anesthesia: Mac, Local Consent: The patient was informed of the risks and benefits of the procedure. These inc lude but are not limited to complications of anesthesia, postoperative infection, incomplete relief of symptoms, recurrence of symptoms, damage to blood vessels, nerves and tendons, deep venous thrombosis, pulmonary embolism and possible need for repeat surgery in the future. Complications: No complications Findings: Dilated left ventricle. Takotsubo syndrome. Ballooning of the left ventricle. Indications for Surgery: Acute coronary syndrome Name of Procedure Performed Left heart catheterization bilateral cine coronary angiography. Left flor[place] triculography. Procedure Details Procedure Details: Prior local anesthesia with 2% lidocaine to the right wrist and full informed consent obtained patient was prepped and draped in usual fashion followed by placement of a six Latvian sheath into the right radial artery through which a multipurpose catheter was used to cannulate both right and left coronary ostia and for ventriculography without complications. Hemodynamics: Aortic blood pressure was 130/70. End-diastolic pressure was 20. There was no gradient across the aortic valve on pullback. Coronary anatomy: The RCA is a medium caliber vessel it has a proximal 20-30% stenosis. There is mild plaquing within the RCA without critical lesions. The PDA is rather small. Small posterolateral branches noted they are free of significant disease. Left main is a large caliber vessel it is normal in its proximal mid and distal segments. It is rather short. No disease present. The LAD is a large vessel It is normal in its proximal mid and distal segments. Diagonals and septals are normal. The circumflexIs a large codominant vessel with two obtuse marginals free of significant disease. Ventriculography in the HERNANDEZ projection shows an EF of approximately 25% with ant erior apical and inferior apical global hypokinesis to akinesis. The basal segments are hyperkinetic. EF is about 25%. Impression: Normal coronary arteries. Elevated left ventricular end-diastolic pressures. Decreased left ventricular ejection fraction consistent with takotsubo syndrome. Recommendations:Medical therapy is warranted to continue with risk factor modification afterload reduction. Condition Fair Disposition Still a Patient Date of Service: April 14, 2025 Billing Provider: SANTO OLSEN Sr., MD Cardiology Common Codes: 39913-VNRDGND INP/OBS CARE (High) Cardiology Procedure Codes: 04479-KBTR ADD CORONARY BRANCH, 89116-CFVQ HEART CATH W/INTRA INJ, 12990-IIZX ANGIOGRAPGHY ADD-ON SANTO OLSEN Sr., MD April 14, 2025 18:26
[2025-04-14] MEDS ORDERED: AMLO1TAB23 PO (19:01)
[2025-04-14] MEDS ORDERED: ATOR40TA52 PO (19:01)
[2025-04-14] MEDS ORDERED: IPRAAER6 INH (19:02)
[2025-04-15] VITALS (22 sets, daily range): BP systolic 103–137; BP diastolic 58–86; PULSE 83–115; RESP 18–22; TEMP 97.3–98.1; O2SAT 91–98
[2025-04-15 01:20] LABS: Urine Bacteria None Seen /hpf (None Seen)
[2025-04-15 01:58] LABS: Urine Blood Negative /uL (Negative); Urine Clarity Clear (Clear); Urine Color Light-Yellow (Yellow); Urine Protein, UAD Negative (Negative); Urine Specific Gravity 1.027 (1.001-1.035); Urine Squamous Epithelial Cell FEW /hpf (<5); Urine Urobilinogen Normal (Negative); Urine WBC 6 /HPF (0-5)
[2025-04-15 03:20] LABS: Base Excess 2.1 mmol/L (-2.0-3.0)
[2025-04-15 06:46] LABS: Chloride 100 mmol/L (98-107); Potassium 4.2 mmol/L (3.5-5.1); Sodium 138 mmol/L (136-145)
[2025-04-15 06:47] LABS: Anion Gap 11 (5-15); Carbon Dioxide 27 mmol/L (20-31)
[2025-04-15 06:48] LABS: Calcium 9.5 mg/dL (8.7-10.4)
[2025-04-15 06:52] LABS: BUN/Creatinine Ratio 26.2 (10.0-20.0)
[2025-04-15 07:02] LABS: Blood Urea Nitrogen 27 mg/dL (9-23); Glucose 143 mg/dL (74-106)
[2025-04-15 07:16] LABS: Basophils # (auto) 0 10 ^3/uL (0-0.2); Eosinophils # (auto) 0 10 ^3/uL (0-0.8); Hematocrit 47.6 % (36.0-46.0); Lymphocytes # (auto) 0.9 10 ^3/uL (0.4-5.4); Lymphocytes % (auto) 5.9 % (10.0-50.0); Mean Corpuscular Hgb Conc. 33.6 g/dL (32.0-36.0); Mean Corpuscular Volume 77.7 fL (80.0-100.0); Monocytes # (auto) 0.4 10 ^3/uL (0-1.3); Neutrophils # (auto) 14.6 10 ^3/uL (1.6-8.6)
[2025-04-15 07:19] LABS: Basophils % (auto) 0.2 % (0.0-2.0); Mean Corpuscular Hemoglobin 26.2 pg (28.0-32.0); Monocytes % (auto) 2.6 % (0.0-12.0); Neutrophils % (auto) 91.3 % (37.0-80.0); Platelet Count (auto) 402 10^3/uL (140-450); Red Blood Cells 6.12 10^6/uL (4.0-5.20); Red Cell Distribution Width 14.8 % (11.8-14.3)
[2025-04-15] MEDS: SACUBITRIL-VALSARTAN 24mg/26mg TAB PO SCH (09:44)
[2025-04-15] MEDS: METOPROLOL SUCCINATE XL 50 MG TAB PO SCH (09:46)
[2025-04-15] MEDS: EMPAGLIFLOZIN 10 MG TAB PO SCH (09:47)
[2025-04-15 12:00] LABS: Base Excess 4.8 mmol/L (-2.0-3.0)
--- NOTE | 2025-04-15 12:26 | DVHPN2 ---
Progress Note - Dictate Date Seen: April 15, 2025 Has the PT tested + for MRSA If YES, has PT been informed?: No Medical Necessity Reason Pt with a Central, PICC or Fol: No Subjective Patient clinically stable except for complains of mild shortness for breath. Patient apparently has a traumatic brain injury and her significant other is at bedside. While I am evaluating the patient along with the nurse at bedside she had an episode of what appeared to be trouble with the breathing and went unresponsive for less than a minute. Subsequently rapid response was called. She is instructed take slow deep breaths. She knew her name and able to tell me that she is in the hospital. Vital signs remained stable. Therefore rapid response was canceled. Patient's coronary angiogram showed no coronary artery disease. Discussed with the at bedside regarding her left ventricular enlargement on echo and ejection fraction of 40% with a takotsubo syndrome. vital signs Vital Sign Date Time Temp Pulse Resp B/P (MAP) Pulse Ox O2 Delivery O2 Flow Rate FiO2 04/15/25 09:46 103 121/72 04/15/25 09:20 20 94 04/15/25 09:11 Nasal Cannula* 4 36 04/15/25 09:00 97.5 97.5 Total Intake and Output 04/14/25 04/14/25 04/15/25 15:00 23:00 07:00 Intake Total 54.5 ml 100 ml 600 ml Balance 54.5 ml 100 ml 600 ml medications Current Medications Medications Dose Ordered Sig/Ilam Route Start Time Stop Time Status Last Admin Dose Admin Nitroglycerin 0.4 mg Q5MINP PRN SL 04/13/25 05:45 Morphine Sulfate 2 mg Q30M PRN IV 04/13/25 05:45 Hold Aspirin 81 mg DAILY PO 04/14/25 10:00 04/15/25 09:43 81 MG Methylprednisolone Sodium Succinate 40 mg BID IV 04/13/25 06:30 04/15/25 09:43 40 MG Ipratropium [place] 0.5 mg Q4HR NEB 04/13/25 06:30 04/15/25 09:11 0.5 MG Albuterol 2.5 mg Q6HPRN PRN NEB 04/13/25 06:30 04/15/25 01:09 2.5 MG Furosemide 40 mg BIDD IV 04/13/25 18:00 04/15/25 06:39 40 MG Potassium Chloride 10 meq BID PO 04/13/25 22:00 04/15/25 09:46 10 MEQ Atorvastatin Calcium 20 mg HS PO 04/13/25 22:00 04/14/25 21:20 20 MG Levofloxacin/ Dextrose 100 ml @ 100 mls/hr DAILY@2000 IV 04/13/25 20:03 04/14/25 21:23 100 MLS/HR Sacubitril/ Valsartan 1 tab BID PO 04/15/25 10:00 04/15/25 09:44 1 TAB Metoprolol Succinate 25 mg DAILY PO 04/15/25 10:00 04/15/25 09:46 25 MG Empaglifozin 10 mg DAILY PO 04/15/25 10:00 04/15/25 09:47 10 MG objective Alert and awake knows her name that she is in the hospital. HEENT pupils equal round react to light. Neck supple no JVD. Heart regular rate and rhythm S1 plus S2. Lungs fair air movement with poor inspiratory effort. But no audible wheezing or rales noted to. Abdomen is soft nontender positive bowel sounds. Extremities no edema positive pulses. laboratory and microbiology Laboratory Tests 04/15/25 06:29 Test 04/15/25 06:29 Range/Units Serum Glucose 143 H 74-106 mg/dL Assessment/Plan Patient is clinically stable. We will check ABG and I will order another chest x-ray. Continue IV diuretics and cardiac medications as she is on. Monitor her overnight. Otherwise further clinical management per clinical course. Discussed with the nurse and her at bedside regarding care plan. Dr. Her we will take over this patient's care from tomorrow and further manage as appropriate. Problems(with codes): (1) Takotsubo syndrome (2) TBI (traumatic brain injury) (3) COPD exacerbation (4) Shortness of breath Plan discussed with: Spouse, Other DARWIN HARPER MD April 15, 2025 12:26
--- NOTE | 2025-04-15 12:28 | DVHPN2 ---
Consult Progress Note Subjective Other Systems: Patient in sinus tachycardia at time of assessment. Denies any cardiac symptoms Objective vital signs Vital Sign Date Time Temp Pulse Resp B/P (MAP) Pulse Ox O2 Delivery O2 Flow Rate FiO2 04/15/25 09:46 103 121/72 04/15/25 09:20 20 94 04/15/25 09:11 Nasal Cannula* 4 36 04/15/25 09:00 97.5 97.5 Total Intake and Output 04/14/25 04/14/25 04/15/25 15:00 23:00 07:00 Intake Total 54.5 ml 100 ml 600 ml Balance 54.5 ml 100 ml 600 ml medications Current Medications Medications Dose Ordered Sig/Liam Route Start Time Stop Time Status Last Admin Dose Admin Nitroglycerin 0.4 mg Q5MINP PRN SL 04/13/25 05:45 Morphine Sulfate 2 mg Q30M PRN IV 04/13/25 05:45 Hold Aspirin 81 mg DAILY PO 04/14/25 10:00 04/15/25 09:43 81 MG Methylprednisolone Sodium Succinate 40 mg BID IV 04/13/25 06:30 04/15/25 09:43 40 MG Ipratropium [place] 0.5 mg Q4HR NEB 04/13/25 06:30 04/15/25 09:11 0.5 MG Albuterol 2.5 mg Q6HPRN PRN NEB 04/13/25 06:30 04/15/25 01:09 2.5 MG Furosemide 40 mg BIDD IV 04/13/25 18:00 04/15/25 06:39 40 MG Potassium Chloride 10 meq BID PO 04/13/25 22:00 04/15/25 09:46 10 MEQ Atorvastatin Calcium 20 mg HS PO 04/13/25 22:00 04/14/25 21:20 20 MG Levofloxacin/ Dextrose 100 ml @ 100 mls/hr DAILY@2000 IV 04/13/25 20:03 04/14/25 21:23 100 MLS/HR Sacubitril/ Valsartan 1 tab BID PO 04/15/25 10:00 04/15/25 09:44 1 TAB Metoprolol Succinate 25 mg DAILY PO 04/15/25 10:00 04/15/25 09:46 25 MG Empaglifozin 10 mg DAILY PO 04/15/25 10:00 04/15/25 09:47 10 MG Examination: GENERAL:Abnormal (Generalized weakness), LUNGS:Abnormal (Wheezing throughout), CVS:Normal, NEURO:Normal laboratory and microbiology Laboratory Tests 04/15/25 06:29 Test 04/15/25 06:29 Range/Units Serum Glucose 143 H 74-106 mg/dL Problem List/Assessment/Plan Problem List/Assessment/Plan NSTEMI, ruled out coronary artery disease Acute on Chronic HFrEF, NYHA class III, newly diagnosed ?Takotsubo syndrome Hyperlipidemia, newly diagnosed Mild tricuspid regurgitation Acute hypoxemic respiratory failure COPD with exacerbation Asthma History of tobacco use Plan/Recommendation (Dr. Olsen): * Transthoracic echocardiogram reveals EF 40% * Initiate guideline directed medical therapy for CHF as tolerated * Initiate MRA (spironolactone) with stable potassium levels * Lipid-lowering agent * Close Cardiac surveillance Case discussed with . The patient underwent a coronary angiogram with left heart catheterization on 04/14/2025 which revealed normal coronary arteries. Ventriculography reveals an EF approximately 25% with anterior apical and inferior apical global hypokinesis. Initiate guideline directed medical therapy for CHF as tolerated. The patient and her were educated on the importance of continuing heart failure medications and the need to follow up with a medical interpreter in the outpatient setting. There is no further inpatient cardiac workup indicated at this time. Cardiology will sign off. Please reconsult if needed. Thank you for allowing us to care for this patient. Please call with any questions or concerns. This medical document was created using an electronic medical record system with voice recognition software and computerized dictation system. Although this document has been carefully reviewed, there might still be some phonetic and typographical errors. Occasional wrong-word or ``sound-alike substitutions may have occurred due to the inherent limitations of voice recognition software. These areas are purely typographical due to imperfections of the software programs and do not reflect any compromise in the patient's medical care. Please read the chart carefully and recognize, using context, where these substitutions have occurred. Plan discussed with: Patient, Spouse Date of Service: April 15, 2025 Billing Provider: PACHECO BAER Common Visit Codes: [id number] INP/OBS CARE(HIGH) PACHECO BAER April 15, 2025 12:28
--- NOTE | 2025-04-15 13:28 | DVH ---
CLINICAL INFORMATION: Acute loss of consciousness. TECHNIQUE: Axial imaging was obtained through the brain without contrast. Coronal and sagittal reform atted images were obtained, reviewed, and stored. Images were reviewed in brain and bone windows. Al l CT scans at this medical facility are performed using dose modulation techniques as appropriate to a performed exam including the following: Automated exposure control was utilized; adjustment of the MA and/or KV according to patient size; and use of iterative reconstruction technique. CTDIvol = 53.9 9 mGy DLP = 863.9 mGy-cm COMPARISON: None FINDINGS: There is no acute intracranial hemorrhage. No mass effect or midline shift. The ventricles and sulci are within normal limits in size for age. Cavum septum pellucidum et vergae incidentally no malathi. Basal cisterns are patent. The calvarium is unremarkable. Paranasal sinuses and mastoid air radha ls are clear. IMPRESSION: No CT evidence of acute intracranial abnormality.
--- NOTE | 2025-04-15 20:37 | DVHPN2 ---
Progress Note - Dictate Date Seen: April 15, 2025 Has the PT tested + for MRSA If YES, has PT been informed?: No Medical Necessity Reason Pt with a Central, PICC or Fol: No vital signs Vital Sign Date Time Temp Pulse Resp B/P (MAP) Pulse Ox O2 Delivery O2 Flow Rate FiO2 04/15/25 20:00 Nasal Cannula* 4 36 04/15/25 18:58 90 18 96 04/15/25 18:44 112/68 04/15/25 16:40 97.3 97.3 Total Intake and Output 04/14/25 04/14/25 04/15/25 15:00 23:00 07:00 Intake Total 54.5 ml 100 ml 600 ml Balance 54.5 ml 100 ml 600 ml medications Current Medications Medications Dose Ordered Sig/Liam Route Start Time Stop Time Status Last Admin Dose Admin Nitroglycerin 0.4 mg Q5MINP PRN SL 04/13/25 05:45 Morphine Sulfate 2 mg Q30M PRN IV 04/13/25 05:45 Hold Aspirin 81 mg DAILY PO 04/14/25 10:00 04/15/25 09:43 81 MG Methylprednisolone Sodium Succinate 40 mg BID IV 04/13/25 06:30 04/15/25 09:43 40 MG Ipratropium [place] 0.5 mg Q4HR NEB 04/13/25 06:30 04/15/25 18:56 0.5 MG Albuterol 2.5 mg Q6HPRN PRN NEB 04/13/25 06:30 04/15/25 18:56 2.5 MG Furosemide 40 mg BIDD IV 04/13/25 18:00 04/15/25 18:44 40 MG Potassium Chloride 10 meq BID PO 04/13/25 22:00 04/15/25 09:46 10 MEQ Atorvastatin Calcium 20 mg HS PO 04/13/25 22:00 04/14/25 21:20 20 MG Levofloxacin/ Dextrose 100 ml @ 100 mls/hr DAILY@2000 IV 04/13/25 20:03 04/15/25 19:32 100 MLS/HR Sacubitril/ Valsartan 1 tab BID PO 04/15/25 10:00 04/15/25 09:44 1 TAB Metoprolol Succinate 25 mg DAILY PO 04/15/25 10:00 5/22/25 09:46 25 MG Empaglifozin 10 mg DAILY PO 04/15/25 10:00 04/15/25 09:47 10 MG Famotidine 20 mg DAILY PO 04/16/25 10:00 Budesonide 0.25 mg BID NEB 04/15/25 22:00 Mupirocin 1 applic BID EACHNOSTRI 04/15/25 22:00 04/20/25 21:59 laboratory and microbiology Laboratory Tests 04/15/25 06:29 Test 04/15/25 06:29 Range/Units Serum Glucose 143 H 74-106 mg/dL Assessment/Plan Impression Acute on chronic respiratory failure Acute COPD exacerbation Elevated troponin NSTEMI Patient seen and examined Events Low oxygen requirements On 4 liters nasal cannula No acute events Labs and imaging reviewed Management Supplemental oxygen Titrate to maintain sats 90% or above Incentive spirometry Continue antibiotics F/u cultures Bronchodilators Steroids for COPD management Monitor renal function Monitor electrolytes Supplement as needed F/u cardiology DVT prophylaxis Plan discussed with: Patient CHARBEL SULLIVAN MD April 15, 2025 20:37
[2025-04-15] MEDS: MUPIROCIN 2% OINT 15gm or 22gm FOR MRSA NARES EACHNOSTRI SCH (21:45)
[2025-04-15] MEDS: BUDESONIDE (INHALATION) 0.5 MG/2 ML NEB NEB SCH (22:22)
[2025-04-16] VITALS (17 sets, daily range): BP systolic 104–114; BP diastolic 59–64; PULSE 74–96; RESP 18–20; TEMP 36.4; O2SAT 91–97
[2025-04-16 07:09] LABS: Chloride 101 mmol/L (98-107); Potassium 4.5 mmol/L (3.5-5.1); Sodium 140 mmol/L (136-145)
[2025-04-16 07:10] LABS: Anion Gap 11 (5-15); Calcium 9.9 mg/dL (8.7-10.4); Carbon Dioxide 28 mmol/L (20-31)
[2025-04-16 07:15] LABS: BUN/Creatinine Ratio 34.1 (10.0-20.0)
[2025-04-16 07:23] LABS: Blood Urea Nitrogen 47 mg/dL (9-23); Glucose 166 mg/dL (74-106)
[2025-04-16 07:38] LABS: Basophils # (auto) 0 10 ^3/uL (0-0.2); Basophils % (auto) 0.2 % (0.0-2.0); Eosinophils # (auto) 0 10 ^3/uL (0-0.8); Hemoglobin 15.9 g/dL (12.2-16.2); Lymphocytes # (auto) 1.1 10 ^3/uL (0.4-5.4); Lymphocytes % (auto) 7.9 % (10.0-50.0); Mean Corpuscular Hemoglobin 25.9 pg (28.0-32.0); Mean Corpuscular Hgb Conc. 33.1 g/dL (32.0-36.0); Mean Corpuscular Volume 78.3 fL (80.0-100.0); Monocytes # (auto) 0.7 10 ^3/uL (0-1.3); Monocytes % (auto) 5.1 % (0.0-12.0); Neutrophils % (auto) 86.8 % (37.0-80.0); Platelet Count (auto) 406 10^3/uL (140-450); Red Blood Cells 6.13 10^6/uL (4.0-5.20); Red Cell Distribution Width 14.8 % (11.8-14.3); White Blood Cell 13.8 10^3/uL (4.4-10.8)
[2025-04-16] MEDS: FAMOTIDINE 20 MG TAB PO SCH (08:45)
[2025-04-16] MEDS ORDERED: EMPA1TAB PO (14:00)
[2025-04-16] MEDS ORDERED: SACU1TAB PO (14:00)
[2025-04-16] MEDS ORDERED: METO-6 PO (14:00)
[2025-04-16] MEDS ORDERED: ATOR40TA52 PO (14:00)
[2025-04-16] MEDS ORDERED: ASPI-325 PO (14:00)
[2025-04-16] MEDS ORDERED: LEVO500T91 PO (14:05)
--- NOTE | 2025-04-16 14:37 | DVHPN2 ---
Progress Note - Dictate Date Seen: April 16, 2025 Has the PT tested + for MRSA If YES, has PT been informed?: No Medical Necessity Reason Pt with a Central, PICC or Fol: No vital signs Vital Sign Date Time Temp Pulse Resp B/P (MAP) Pulse Ox O2 Delivery O2 Flow Rate FiO2 04/16/25 13:00 97.5 77 18 112/64 (80) 93 97.5 04/16/25 11:04 4.0 04/16/25 10:48 Nasal Cannula* 36 Total Intake and Output 04/15/25 04/15/25 04/16/25 15:00 23:00 07:00 Intake Total 1050 ml 550 ml Output Total 850 ml Balance 200 ml 550 ml medications Current Medications Medications Dose Ordered Sig/Liam Route Start Time Stop Time Status Last Admin Dose Admin Nitroglycerin 0.4 mg Q5MINP PRN SL 04/13/25 05:45 Morphine Sulfate 2 mg Q30M PRN IV 04/13/25 05:45 Hold Aspirin 81 mg DAILY PO 04/14/25 10:00 04/16/25 08:45 81 MG Methylprednisolone Sodium Succinate 40 mg BID IV 04/13/25 06:30 04/16/25 08:45 40 MG Ipratropium [place] 0.5 mg Q4HR NEB 04/13/25 06:30 04/16/25 10:47 0.5 MG Albuterol 2.5 mg Q6HPRN PRN NEB 04/13/25 06:30 04/16/25 10:47 2.5 MG Furosemide 40 mg BIDD IV 04/13/25 18:00 04/16/25 05:53 40 MG Potassium Chloride 10 meq BID PO 04/13/25 22:00 04/16/25 08:45 10 MEQ Atorvastatin Calcium 20 mg HS PO 04/13/25 22:00 04/15/25 21:32 20 MG Levofloxacin/ Dextrose 100 ml @ 100 mls/hr DAILY@2000 IV 04/13/25 20:03 04/15/25 19:32 100 MLS/HR Sacubitril/ Valsartan 1 tab BID PO 04/15/25 10:00 04/16/25 08:45 1 TAB Metoprolol Succinate 25 mg DAILY PO 04/15/25 10:00 04/16/25 08:46 25 MG Empaglifozin 10 mg DAILY PO 04/15/25 10:00 04/16/25 08:45 10 MG Famotidine 20 mg DAILY PO 04/16/25 10:00 04/16/25 08:45 20 MG Budesonide 0.25 mg BID NEB 04/15/25 22:00 04/16/25 10:47 0.25 MG Mupirocin 1 applic BID EACHNOSTRI 04/15/25 22:00 04/20/25 21:59 04/16/25 08:53 1 APPLIC laboratory and microbiology Laboratory Tests 04/16/25 06:50 Test 04/16/25 06:50 Range/Units Serum Glucose 166 H 74-106 mg/dL Assessment/Plan Impression Acute on chronic respiratory failure Acute COPD exacerbation Elevated troponin NSTEMI Patient seen and examined Events Low oxygen requirements On 4 liters nasal cannula No distress Labs and imaging reviewed Management Supplemental oxygen Titrate to maintain sats 90% or above Incentive spirometry Continue antibiotics F/u cultures Bronchodilators Steroids for COPD management Monitor renal function Monitor electrolytes Supplement as needed F/u cardiology DVT prophylaxis Plan discussed with: Patient CHARBEL SULLIVAN MD April 16, 2025 14:37
--- NOTE | 2025-04-16 15:09 | DVHDS2 ---
Discharge Summary Date of Admission April 13, 2025 at 05:37 Date of Discharge: April 16, 2025 Labs/Diagnostic Data: Laboratory Results Test 04/16/25 06:50 04/15/25 11:52 04/15/25 11:48 04/15/25 06:29 White Blood Count 13.8 10^3/uL (4.4-10.8) Red Blood Count 6.13 10^6/uL (4.0-5.20) Hemoglobin 15.9 g/dL (12.2-16.2) Hematocrit 48.0 % (36.0-46.0) Mean Corpuscular Volume 78.3 fL (80.0-100.0) Mean Corpuscular Hemoglobin 25.9 pg (28.0-32.0) Mean Corpuscular Hemoglobin Concent 33.1 g/dL (32.0-36.0) Red Cell Distribution Width 14.8 % (11.8-14.3) Platelet Count 406 10^3/uL (140-450) Mean Platelet Volume 8.9 fL (6.9-10.8) Neutrophils (%) (Auto) 86.8 % (37.0-80.0) Lymphocytes (%) (Auto) 7.9 % (10.0-50.0) Monocytes (%) (Auto) 5.1 % (0.0-12.0) Eosinophils (%) (Auto) 0.0 % (0.0-7.0) Basophils (%) (Auto) 0.2 % (0.0-2.0) Neutrophils # (Auto) 12.0 10 ^3/uL (1.6-8.6) Lymphocytes # (Auto) 1.1 10 ^3/uL (0.4-5.4) Monocytes # (Auto) 0.7 10 ^3/uL (0-1.3) Eosinophils # (Auto) 0 10 ^3/uL (0-0.8) Basophils # (Auto) 0 10 ^3/uL (0-0.2) Nucleated Red Blood Cells 0.0 % Sodium Level 140 mmol/L (136-145) Potassium Level 4.5 mmol/L (3.5-5.1) Chloride Level 101 mmol/L (98-107) Carbon Dioxide Level 28 mmol/L (20-31) Anion Gap 11 (5-15) Blood Urea Nitrogen 47 mg/dL (9-23) Creatinine 1.38 mg/dL (0.550-1.02) Glomerular Filtration Rate Calc 42 mL/min (>90) BUN/Creatinine Ratio 34.1 (10.0-20.0) Serum Glucose 166 mg/dL (74-106) Calcium Level 9.9 mg/dL (8.7-10.4) Blood Gas Specimen Type Arterial Blood Gas Sample Site Right radial Blood Gas Patient Temperature 37.0 Arterial Blood Date Drawn Arterial Blood pH 7.483 (7.350-7.450) Arterial Blood Partial Pressure CO2 38.8 mmHg (32.0-45.0) Arterial Blood Partial Pressure O2 69.4 mmHg (83.0-108.0) Arterial Blood HCO3 28.4 mmol/L (21.0-28.0) Arterial Blood Oxygen Saturation 93.7 % (94.0-98.0) Arterial Blood Base Excess 4.8 mmol/L (-2.0-3.0) Arterial Blood Oxyhemoglobin 92.5 % (94.0-98.0) Arterial Blood Carboxyhemoglobin 0.8 % (0.5-1.5) Arterial Blood Methemoglobin 0.5 % (0.0-1.5) Christian Test Yes Blood Gas Total Hemoglobin 16.70 g/dL (12.0-16.0) Blood Gas Liter Flow 3.00 Blood Gas Modality Nasal cannula FiO2 % 32.0 POC Glucose 123 mg/dl (70-106) B-Type Natriuretic Peptide 487.77 pg/mL (0-100) Test 04/15/25 03:10 04/15/25 01:19 04/14/25 11:37 04/14/25 04:07 Blood Gas EPAP 5 Blood Gas IPAP 10 Urine Color Light-yellow (Yellow) Urine Clarity Clear (Clear) Urine pH 6.0 (5.0-9.0) Urine Specific [place] 1.027 (1.001-1.035) Urine Protein Negative (Negative) Urine Ketones Negative (Negative) Urine Blood Negative /uL (Negative) Urine Nitrite Negative (Negative) Urine Bilirubin Negative (Negative) Urine Urobilinogen Normal mg/dL (Negative) Urine Leukocyte Esterase Trace /uL (Negative) Urine RBC 3 /hpf (0 - 4) Urine Microscopic WBC 6 /HPF (0-5) Urine Squamous Epithelial Cells Few /hpf (<5) Urine Bacteria None seen /hpf (None Seen) Urine Glucose Normal mg/dL (Normal) Prothrombin Time 10.9 sec (9.3-11.8) Prothrombin Time INR 1.03 (0.9-1.15) Activated Partial Thromboplast Time 78.2 SEC (24.5-34.5) Troponin I High Sensitivity 2438 ng/L (</=34) Test 04/13/25 08:16 04/13/25 06:58 04/13/25 05:57 Urine Opiates Screen Neg (NEGATIVE) Urine Fentanyl Screen Neg (NEGATIVE) Urine Barbiturates Screen Neg (NEGATIVE) Urine Phencyclidine Screen Neg (NEGATIVE) Urine Amphetamines Screen Neg (NEGATIVE) Urine Benzodiazepines Screen Neg (NEGATIVE) Urine Cocaine Screen Neg (NEGATIVE) Urine Cannabinoids Screen Neg (NEGATIVE) Thyroid Stimulating Hormone (TSH) 0.34 uIU/mL (0.55-4.78) Hemoglobin A1c 5.5 % A1C (<5.7) Magnesium Level 2.6 mg/dL (1.6-2.6) Triglycerides Level 74 mg/dL (< 150) Cholesterol Level 181 mg/dL (< 200) LDL Cholesterol 115 mg/dL (< 100) HDL Cholesterol 56 mg/dL (40-59) Other Laboratory Tests 04/16/25 06:50 Brief Hx & Hospital Course: 64-year-old female with known history of chronic respiratory failure on home O2, COPD, asthma, history of traumatic brain injury who initially presented to the hospital with chest pain shortness of breath found to have elevated troponin [facility]. Patient subsequently was transferred due [facility] as cardiac intervention is not available at [facility]. Patient was found to have NSTEMI status post left heart catheterization shows evidence of drug code Takotsubo syndrome. Patient was started on appropriate heart medication including beta chana aspirin statin and Jardiance. Also on Entresto. Cardiology cleared the patient to be discharged. Patient already has oxygen at home. Patient being discharged under stable condition. The patient was being treated for suspected pneumonia , IV antibiotics were given which will be switched to p.o. antibiotics. Condition at Discharge: Stable Final Diagnosis/Problems List NSTEMI, ruled out coronary artery disease Acute on Chronic congestive heart failure with systolic dysfunction exacerbation Takotsubo syndrome Hyperlipidemia, Acute on chronic hypoxemic respiratory failure COPD with exacerbation Asthma History of Traumatic brain injury, stable History of tobacco use Discharge Disposition: Home SNF Discharge Will this Physician continue t: No Discharge Instruct/Medications Diet: Cardiac 2g Na,low cholest Activity: No Restrictions, As Tolerated Follow Up/Referral: Follow up with the PCP, Cardiology in 1-2 weeks Medications: As reconciled Discharge Statement: "Patient was advised to return to the ER or call 911 if any headaches, dizziness, shortness of breath, chest pain, abdominal pain, bleeding, fevers, or worsening of medical condition. Patient was counseled about treatment plan, medications, possible side effects, patientverbalized understanding. All questions were answered to the best of my ability. This discharge took greater then 30 minutes in planning, reviewing documentation, counseling the patient, and discussing with other team members." ASSESSMENT ASSESSMENT Assessment NSTEMI, ruled out coronary artery disease Acute on Chronic congestive heart failure with systolic dysfunction exacerbation Takotsubo syndrome Hyperlipidemia, Acute on chronic hypoxemic respiratory failure COPD with exacerbation Asthma History of Traumatic brain injury, stable History of tobacco use Date of Service: April 16, 2025 Billing Provider: HAZEL PENA MD Common Visit Codes: NOT BILLABLE HAZEL PENA MD April 16, 2025 15:09
== END 2025-04-16 16:57 | disposition home or self-care (01) | DRG 280 ==
LOC: ER 05:03 → EDBD 05:03 → OVERFLOW 05:37 → TELE-WESTW 06:33
PROVIDERS: ADMIT Internal Medicine; ATTEND Internal Medicine
PROC: 4A023N7 Measurement of Cardiac Sampling and Pressure, Left Heart, Percutaneous Approach (ICD-10-PCS; principal; 2025-04-14)
PROC: B211YZZ Fluoroscopy of Multiple Coronary Arteries using Other Contrast (ICD-10-PCS; 2025-04-14)
PROC: B215YZZ Fluoroscopy of Left Heart using Other Contrast (ICD-10-PCS; 2025-04-14)
DX: I21.4 Non-ST elevation (NSTEMI) myocardial infarction (principal); I50.23 Acute on chronic systolic (congestive) heart failure; J96.21 Acute and chronic respiratory failure with hypoxia; J44.1 Chronic obstructive pulmonary disease with (acute) exacerbation; Z86.74 Personal history of sudden cardiac arrest; Z99.81 Dependence on supplemental oxygen; I07.1 Rheumatic tricuspid insufficiency; J43.9 Emphysema, unspecified; E78.5 Hyperlipidemia, unspecified; F41.9 Anxiety disorder, unspecified; Z87.891 Personal history of nicotine dependence; D72.828 Other elevated white blood cell count; Z87.820 Personal history of traumatic brain injury; T38.0X5A Adverse effect of glucocorticoids and synthetic analogues, initial encounter; Z82.5 Family history of asthma and other chronic lower respiratory diseases; Z82.49 Family history of ischemic heart disease and other diseases of the circulatory system; Z88.5 Allergy status to narcotic agent
CPT/HCPCS: 36415; 36600; 70450; 71045; 71275; 80048; 80061; 80307; 81001; 82805; 82962; 83036; 83735; 83880; 84443; 84484; 85025; 85610; 85730; 87081; 93005; 93306; 93458; 93970; 94640; 97110; 97116; 97163; 97530; 99152; G0378; J1956; J2250; Q9967